=== PATIENT | female | born 1950 | race Caucasian/White ===

== ENCOUNTER 2016-07-06 13:50 | Emergency (ER) | payer OTHER ==
[~2016-07-06] VITALS: Ht 160 cm; Wt 52.2 kg
[2016-07-06] MEDS ORDERED: ATOR1TAB21 (14:14)
[2016-07-06] MEDS ORDERED: LEVO88TA3 (14:14)
[2016-07-06] MEDS ORDERED: CLON1TAB (14:14)
[2016-07-06] MEDS ORDERED: REXU1TAB3 (14:14)
[2016-07-06] MEDS ORDERED: MECL-68 (14:14)
[2016-07-06] MEDS ORDERED: BRIN1TAB3 (14:14)
[2016-07-06] MEDS ORDERED: LISINOPRIL-HCTZ (14:14)
[2016-07-06] MEDS ORDERED: LORazepam 1 MG TAB PO STA ×2 (14:26→15:47)
[2016-07-06] MEDS ORDERED: LORazepam 1 MG TAB As Ordered ONE (14:28)
[2016-07-06 15:10] LABS: BASO % 0.5 % (0.0-1.0); LARGE UNSTAINED CELL # 0.1 K/mm3 (0.0-0.4); LARGE UNSTAINED CELL % 1.8 % (0.0-4.0); LYMPH # 0.8 K/mm3 (1.5-4.5); LYMPH % 13.4 % (24.0-44.0); MEAN CORPUSCULAR HEMOGLOBIN 27.4 pg (27.0-33.0); MEAN CORPUSCULAR HGB CONC 34.7 g/dl (32.0-36.5); MEAN CORPUSCULAR VOLUME 78.8 fl (80.0-96.0); MONO # 0.4 K/mm3 (0.0-0.8); MONO % 8.5 % (0.0-5.0); NEUTROPHILS # 3.7 K/mm3 (1.8-7.7); NEUTROPHILS % 74.9 % (36.0-66.0); PLATELET COUNT, AUTOMATED 179 k/mm3 (150-450); RED CELL DISTRIBUTION WIDTH 14.2 % (11.5-14.5); WHITE BLOOD COUNT 4.9 K/mm3 (4.0-10.0)
[2016-07-06 15:39] LABS: ALBUMIN 3.5 GM/DL (3.2-5.2); ALBUMIN/GLOBULIN RATIO 1.25 (1.00-1.93); BILIRUBIN,DIRECT 0.2 MG/DL (0.0-0.2); BILIRUBIN,TOTAL 0.6 MG/DL (0.2-1.0); CALCIUM LEVEL 8.9 MG/DL (8.8-10.2); CREATININE FOR GFR 1.06 MG/DL (0.55-1.02); GLOMERULAR FILTRATION RATE 55.6 (>45); MAGNESIUM LEVEL 2.3 MG/DL (1.8-2.4); POTASSIUM SERUM 3.3 MEQ/L (3.5-5.1); THYROXINE (T4) 11.3 UG/DL (4.5-12.0); TOTAL PROTEIN 6.3 GM/DL (6.4-8.2)
[2016-07-06] MEDS ORDERED: ATIV1TAB7 PO (15:53)
[2016-07-06] MEDS ORDERED: HYDR-4274 PO (15:54)
[2016-07-06] MEDS ORDERED: POTASSIUM CHLORIDE 10 MEQ SR TABLET PO ONE (16:00)
[2016-07-06 16:19] LABS: ERYTHROCYTE SEDIMENTATION RATE 11 mm/hr (0-30)
--- NOTE | 2016-07-06 19:00 | REPUSA ---
MRI of the brain Clinical history: unsteady gait. Technique: Multiecho multiplanar MRI images of the brain were obtained without administration of cont rast. Diffusion weighted images with ADC mapping was also obtained. Findings: The ventricles and sulci are symmetric bilaterally. The brain parenchyma demonstrates uniform and nor mal signal on all sequences. There is no midline shift, mass effect, or extra-axial fluid collection. The midline intracranial structures do not demonstrate any gross abnormalities. The cervical cranial junction is intact. The orbits are unremarkable. The visualized paranasal sinuses and mastoid air ce lls are clear. The osseous structures and superficial soft tissues are unremarkable. The vascular str uctures demonstrate appropriate flow voids. Impression: Normal MRI of the Brain.
--- NOTE | 2016-07-06 19:20 | REPUSA ---
MRI cervical spine without contrast Clinical statement: unsteady gait. Technique: Multiecho multiplanar MRI images of the cervical spine were obtained without administratio n of contrast. No comparison is available. Findings: The cervical vertebral bodies are in satisfactory position and alignment. No fractures or d islocations are demonstrated. Normal heterogeneous bone marrow signal is noted. No osseous tumors are seen. The visualized portions of the posterior fossa are unremarkable. The cervical cranial junction is intact. The intervertebral disc spaces and heights are well-maintained. The facet joints are inta ct without evidence of subluxation. The cervical spinal cord demonstrates normal signal and contour. The surrounding soft tissues are within normal limits. At C4/C5, C5/C6, C6/C7, and C7/T1 disc levels, mild disc bulging is noted. There is no evidence of d isc herniation or central canal stenosis. Mild bilateral neural foraminal narrowing is noted at C4/C5 and C5/C6. Moderate bilateral neural foraminal narrowing is noted at C6/C7. Impression: 1. No acute abnormality. 2. Mild degenerative disc disease with disc bulgingand neural foraminal narrowing at C4/C5, C5/C6, C6 /C7, and C7/T1 as described. No evidence of central canal stenosis.
[2016-07-06] MEDS ORDERED: hydrOXYzine 50 MG TAB PO STA (19:51)
[2016-07-06] MEDS ORDERED: LORazepam 2 MG TAB PO STA (19:51)
[2016-07-06 20:00] VITALS: BP 139/82
--- NOTE | 2016-07-06 20:10 | REPUSA ---
MRI of the thoracic spine without contrast Clinical statement: unsteady gait. Technique: Multiecho multiplanar MRI images of the thoracic spine were obtained without administratio n of contrast. No comparison is available. Findings: The thoracic vertebral bodies are in satisfactory position and alignment. No fractures or d islocations are demonstrated. The bone marrow appears unremarkable. Intervertebral disc spaces are we ll maintained. There is minimal disc bulging at T3/T4, T4/T5, T6/T7, and T9/T10. There is no evidence of disc herniation or protrusion. The neural foramen are patent. The facet joints are intact. The aguilra rrounding soft tissues are within normal limits. Impression: No acute abnormality. Minimal disc bulging at multiple levels as described above.
[2016-07-08 09:03] LABS: FOLATE 17.1 NG/ML (>5.4)
[2016-07-11 00:07] LABS: Lyme Disease IgG/IgM Antibodie <0.91 ISR (0.00-0.90); Lyme Disease IgM Ab Quantitati <0.80 index (0.00-0.79)
== END 2016-07-06 20:04 | disposition home or self-care (01) ==
LOC: M ED 15:08
DX: F41.9 Anxiety disorder, unspecified (principal); M50.121 Cervical disc disorder at C4-C5 level with radiculopathy; M50.122 Cervical disc disorder at C5-C6 level with radiculopathy; M50.123 Cervical disc disorder at C6-C7 level with radiculopathy; M51.34 Other intervertebral disc degeneration, thoracic region; M51.24 Other intervertebral disc displacement, thoracic region; F32.9 Major depressive disorder, single episode, unspecified; E07.9 Disorder of thyroid, unspecified; F17.200 Nicotine dependence, unspecified, uncomplicated

== ENCOUNTER → 2016-09-30 | Outpatient (CLI) | payer OTHER ==
[~2016-09-30] MED LIST: ATIV1TAB7 PO; ATOR1TAB21; ATOR1TAB21 PO; BRIN1TAB3; CELE40TA PO; CLON1TAB; CLON1TAB PO; HYDR50TA70 PO; LEVO88TA24 PO; LEVO88TA3; LISI10TA2 PO; LISINOPRIL-HCTZ; LITH300C PO; MECL-68; MELA1TAB15 PO; REXU1TAB3
[2016-09-30 20:07] LABS: BLOOD UREA NITROGEN 10 MG/DL (7-18); CREATININE FOR GFR 0.95 MG/DL (0.55-1.02); GLOMERULAR FILTRATION RATE > 60.0 (>45)
== END ==
LOC: M SMT 11:58
PROVIDERS: ATTEND Psychiatry & Neurology Psychiatry
DX: Z79.899 Other long term (current) drug therapy (principal)

== ENCOUNTER → 2016-10-07 | Outpatient (CLI) | payer OTHER | LOC: M SMT 09:49 | PROVIDERS: ATTEND Psychiatry & Neurology Psychiatry | DX: Z79.899 Other long term (current) drug therapy (principal) ==

== ENCOUNTER 2016-10-21 11:04 | Inpatient (IN) | payer OTHER ==
[~2016-10-21] VITALS: Ht 160 cm; Wt 60.8 kg
[~2016-10-21 11:04] MED LIST changes: -ATOR1TAB21 PO; -CELE40TA PO; -CLON1TAB PO; -LEVO88TA24 PO; -LISI10TA2 PO; -LITH300C PO; -MELA1TAB15 PO
[2016-10-21] MEDS ORDERED: LITH300C PO (11:14)
[2016-10-21 12:13] LABS: ADD MANUAL DIFFER YES; DIFF SLIDE NUMBER 255; MEAN CORPUSCULAR HGB CONC 34.6 g/dl (32.0-36.5); MEAN CORPUSCULAR VOLUME 83.8 fl (80.0-96.0); PLATELET COUNT, AUTOMATED 201 k/mm3 (150-450); RED CELL DISTRIBUTION WIDTH 13.3 % (11.5-14.5); WHITE BLOOD COUNT 6.8 K/mm3 (4.0-10.0)
[2016-10-21] MEDS ORDERED: NS 500 ML IV ONE (12:45)
[2016-10-21 12:46] LABS: OSMOLALITY SERUM 289 MOSM/KG (280-301)
[2016-10-21 12:56] LABS: ALBUMIN 3.7 GM/DL (3.2-5.2); ALBUMIN/GLOBULIN RATIO 1.42 (1.00-1.93); ALKALINE PHOSPHATASE 85 U/L (45-117); ALT/SGPT 16 U/L (12-78); ANION GAP 8 MEQ/L (8-16); AST/SGOT 11 U/L (15-37); BILIRUBIN,DIRECT 0.1 MG/DL (0.0-0.2); BILIRUBIN,TOTAL 0.4 MG/DL (0.2-1.0); BLOOD UREA NITROGEN 12 MG/DL (7-18); CALCIUM LEVEL 9.2 MG/DL (8.8-10.2); CARBON DIOXIDE LEVEL 25 MEQ/L (21-32); CHLORIDE LEVEL 107 MEQ/L (98-107); CREATININE FOR GFR 0.94 MG/DL (0.55-1.02); GLOMERULAR FILTRATION RATE > 60.0 (>45); GLUCOSE, FASTING 98 MG/DL (80-110); POTASSIUM SERUM 3.7 MEQ/L (3.5-5.1); SODIUM LEVEL 140 MEQ/L (136-145); TOTAL PROTEIN 6.3 GM/DL (6.4-8.2)
[2016-10-21 12:59] LABS: BANDS 1 % (< 11); EOSINOPHILS 1 % (0-5)
[2016-10-21 13:00] LABS: ANISOCYTOSIS 1+
[2016-10-21] MEDS ORDERED: LEVO88TA24 PO (15:25)
[2016-10-21] MEDS ORDERED: ATOR1TAB21 PO (15:25)
[2016-10-21] MEDS ORDERED: CELE40TA PO (15:25)
[2016-10-21] MEDS ORDERED: CLON1TAB PO ×3 (15:25)
[2016-10-21] MEDS ORDERED: LISI10TA2 PO (15:25)
[2016-10-21] MEDS ORDERED: MELA1TAB15 PO (15:25)
[2016-10-21] MEDS: NS 1,000 ML IV SCH (16:36)
[2016-10-21 17:10] VITALS: BP 102/59
[2016-10-21 18:00] VITALS: BP_SYST 106; BP_SYST 107; BP_SYST 112; BP_DIAS 60; BP_DIAS 61; BP_DIAS 63
--- NOTE | 2016-10-21 18:07 | HPEPDOC ---
General Date of Admission Oct 21, 2016 at 14:41 Primary Care Physician: Cynthia Chaney Attending Physician: SOSA DORAN MD Chief Complaint The patient is a 65-year-old female admitted with a reason for visit of [place] Toxicity. Source: Patient, RN notes reviewed, Old records Exam Limitations: No limitations Associated Symptoms: Headaches, Loss of appetite History of Present Illness Ms. Breaux is a 65-year-old female who presents to [facility] Emergency Department with neurological symptoms of poor balance, slurred speech, gait disturbance, and tremor. Past medical history is significant for hypertension, hypothyroidism, dyslipidemia, depression, anxiety, panic disorder, agoraphobia, prior alcohol dependence, hematuria, adenomatous polyp, basal cell carcinoma. Patient reports that she has had the above mentioned symptoms for the last 2-3 weeks, but noticed on Friday she was unable to participate effectively at her tennis game. She was unable to either serve the tennis ball or otherwise hit the tennis ball over the net. She felt quite incoordinated which upset her. She call her psychiatrist this morning and described her symptoms after which her psychiatrist advised her to stop taking lithium and present to the emergency department. The patient describes her poor balance as having the sensation of about to fall over when getting dressed and lifting one leg or the other to put trousers on. Both her ex- and an acquaintance, within the last couple days, have inquired as to whether or not the patient has Parkinson's. She states that these are two people who she has not seen in over a year. Patient also feels as if her gait is off. She describes it as having to over-correct herself when walking. It others on either side. She reports that this happened previously when she was on Depakote which she started approximately 1 year ago, but recently stopped taking in February 2016. She also reports difficulty with her fine motor skills that she noticed today. She was having difficulty filling out the admission paperwork. She denies difficulty with word recognition or reading. States she had difficulty filling out paperwork secondary to a tremor. Admits to a left-sided frontal/temporal headache which started today. Has previously had scotomas, approximately two within the last year without the development of a headache. Denies triggers. Takes Advil and it improves the symptoms. Also reports dysphagia to liquids. Has never had this evaluated. Reports a decreased appetite with a decrease in weight of approximately 20 pounds. Has no desire to eat. Is active (plays tennis, golf, yoga) and on clonazepam which she attributes to the weight loss. Besides positive review of systems listed above, all other review of systems were negative. Hospitalist service was consulted and patient was admitted for further medical management. Home Medications Scheduled (Lisinopril/Hydrochlorothi 10-12.5 mg) 1 Tab Tab, 1 TAB PO DAILY, (Reported) Atorvastatin Calcium (Atorvastatin Calcium) 20 Mg Tab, 20 MG PO QHS, (Reported) Citalopram Hydrobromide (Celexa) 40 Mg Tab, 40 MG PO DAILY, (Reported) Clonazepam (Clonazepam) 1 Mg Tab, 0.5 MG PO DAILY, (Reported) TAKES IN THE AFTERNOON Clonazepam (Clonazepam) 1 Mg Tab, 1 MG PO QHS, (Reported) Levothyroxine Sodium (Levoxyl) 88 Mcg Tab, 88 MCG PO DAILY, (Reported) Melatonin (Melatonin) 10 Mg Tab, 10 MG PO QHS, (Reported) Scheduled PRN Clonazepam (Clonazepam) 1 Mg Tab, 1 MG PO TID PRN for ANXIETY, (Reported) Allergies Coded Allergies: No Known Allergies (Unverified , 07/06/16) Past Medical History Medical History 1. Hypertension 2. Hypothyroidism 3. Dyslipidemia 4. Depression 5. Anxiety 6. Panic disorder 7. Agoraphobia 8. Hematuria 9. Prior alcohol dependence 10. Basal cell carcinoma 11. Adenomatous polyp Surgical History 1. Colonoscopy 2. Total hysterectomy 3. Tonsillectomy 4. 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: One son and one daughter 4 grandchildren Prior alcohol dependence, sober 12 years, for 15 years confused a 750 mL bottle of wine every evening Currently smokes cigarillo's, 15 - 20 per day for the last 12 years Admits to domestic and international travel Denies environmental exposures Denies pets in the home Denies illicit drug use Review of Symptoms Constitutional: Reports: Weight Loss (20 pounds since April 2016), Denies: Chills, Fever, Malaise, Night Sweats, Weakness, Fatigue Eyes: Denies: Pain, Vision change, Conjunctivae inflammation, Eyelid inflammation ENT: Reports: Head Aches, Dysphagia (to liquids), Denies: Ear Pain, Sinus Congestion, Post Nasal Drip, Sore Throat, Epistaxis Skin: Denies: Rash, Lesions, Bruising Pulmonary: Denies: Dyspnea, Cough, Pleuritic Chest Pain Cardiovascular: Denies: Chest Pain, Palpitations, Orthopnea, Paroxysmal Noc. Dyspnea, Edema, Lt Headedness Gastrointestinal: Denies: Nausea, Vomiting, Abdominal Pain, Diarrhea, Constipation, Melena, Hematochezia Genitourinary: Denies: Dysuria, Frequency, Incontinence, Hematuria, Retention Hematologic: Denies: Bruising, Bleeding Excessively Endocrine: Denies: Polydipsia, Polyphagia, Polyuria Musculoskeletal: Denies: Neck Pain, Back Pain, Shoulder Pain, Joint Pain, Muscle Pain Neurological: Reports: Incoordination, Change in speech (slurred speech), Other Symptoms (gait disturbance, fine motor skill deficit, poor balance), Denies: Weakness, Numbness Physical Examination General Exam: Positive: Alert, Cooperative, No Acute Distress Eye Exam: Positive: PERRLA, Conjunctiva & lids normal, EOMI, Sclera icteric, Other Eye Symptoms ENT Exam: Positive: Atraumatic, Mucous membr. moist/pink, Pharynx Normal, Tongue Midline, Nares Patent, Negative: Pharyngeal Edema Neck Exam: Positive: Supple, +2 carotid pulse wo bruit, Negative: JVD, thyromegaly, Lymphadenopathy Chest Exam: Positive: Clear to auscultation, Normal air movement, Negative: Rales, Rhonchi, Wheezing Heart Exam: Positive: Rate Normal, Bradycardic, Regular Rhythm, Normal S1, Normal S2, Negative: Gallops, Murmurs, Rubs Telemetry: Positive: Sinus, Bradycardia Abdomen Exam: Positive: BS Hypoactive, Soft, Negative: Tenderness, Hepatospenomegaly, Mass, Hernia Extremity Exam: Positive: Normal pulses, Other (muscle strength intact in upper and lower extremities bilaterally), Negative: Clubbing, Cyanosis, Edema, Tenderness, Swelling Skin Exam: Negative: Rash, Lesion Neuro Exam: Positive: Normal Gait, Normal Speech, Strength at 5/5 X4 ext, Sensation Intact, Cranial Nerves 3-12 NL (mild decrease in cranial nerve VIII on the left), Reflexes 2+, Other (finger to nose and Romberg negative) Psych Exam: Positive: Oriented x 3 Vital Signs Vital Signs Date Time Temp Pulse Resp B/P (MAP) Pulse Ox O2 Delivery O2 Flow Rate FiO2 10/21/16 17:10 99.1 56 18 102/59 (73) 96 Room Air Height (in): 63 Weight (kg): 58.2 BMI (kg): 22.7 Laboratory Data Labs 24H Laboratory Tests 2 10/21/16 11:32: Neutrophils 76H, Band Neutrophils 1, Lymphocytes (Manual) 13L, Monocytes (Manual ) 6, Eosinophils (Manual) 1, Atypical Lymphocytes 3, Platelet Estimate NORMAL, Anisocytosis 1+ 10/21/16 11:56: Anion Gap 8, Glomerular Filtration Rate > 60.0, Osmolality 289, Lactic Acid Level 1.1, Calcium Level 9.2, Aspartate Amino Transf (AST/SGOT) 11L, Alanine Aminotransferase (ALT/SGPT) 16, Alkaline Phosphatase 85, Total Bilirubin 0.4, Direct Bilirubin 0.1, Ammonia 31, Total Creatine Kinase 42, Creatine Kinase MB 1.0, Creatine Kinase MB Relative Index 2.38, Troponin I < 0.02, Total Protein 6.3L, Albumin 3.7, Albumin/Globulin Ratio 1.42, Thyroid Stimulating Hormone (TSH ) 0.610, [place]o Level 1.45H CBC/BMP Laboratory Tests 10/21/16 11:32 Red Blood Count 4.77, Mean Corpuscular Volume 83.8, Mean Corpuscular Hemoglobin 29.0, Mean Corpuscular Hemoglobin Concent 34.6, Red Cell Distribution Width 13.3 10/21/16 11:56 Assessment/Plan This is a 65-year-old female with a past medical history is significant for hypertension, hypothyroidism, dyslipidemia, depression, anxiety , panic disorder, agoraphobia, prior alcohol dependence, hematuria, adenomatous polyp, basal cell carcinoma who presents with subjective neurological deficits with an unclear etiology at this time, bradycardia, and hypotension. Plan / VTE VTE Prophylaxis Ordered?: Yes (TEDs, sequential, knee-high compression, heparin 5000 units subcutaneous every 8 hours) Plan Plan Bradycardia No clear etiology at this time. EKG shows sinus bradycardia. Admit to the progressive care unit. Transient neurological symptoms Campo level is 1.45. Likely related to underlying lithium toxicity. Obtain daily lithium levels. Discontinue lithium at this time. Could consider other neurological deficits such as multiple sclerosis, cerebrovascular accident, normal pressure hydrocephalus. Consult neurology. Obtain MRI of the brain without contrast. Obtain neurological checks every 4 hours. Hypotension Admit patient to the progressive care unit. Obtain orthostatic vital signs. Initiate intravenous fluid resuscitation with normal saline at 50 mLs per hour. Hypothyroidism Tinea patient on current home medication regimen of Synthroid. Depression/anxiety Continue patient on her home medication regimen of clonazepam 1 mg 3 times a day as needed. Holding her regularly scheduled clonazepam of 0.5 mg in the morning and 1 mg in the evening. Could consider discussing patient with her outpatient psychiatrist. Hypertension Have held patient's lisinopril and hydrochlorothiazide at this time secondary to hypotension and IV fluid resuscitation. Could consider resuming these medications once patient's blood pressure and hydration status improve. Disposition Admit: Progressive care unit Anticipated hospitalization: 2 nights Attending: Dr. Mays IVF: Initiate (normal saline at 50 mLs per hour) Diet: Continue Current (2 g sodium) Activity: Encourage Ambulation Medications: Other Med: (discontinue lithium) Diagnostics: Check Labs, Repeat Labs in AM, MRI (of the brain without contrast) Anticipated Discharge: Home ANDREW PIERRE Oct 21, 2016 18:07
--- NOTE | 2016-10-21 19:34 | ECGEPIP ---
Stationary ECG Study [facility] - ED Test Date: 2016-10-21 Pat Name: NORAH INGRAM Department: Room: - Gender: F Food Preparation Worker: medina : 1950 Requested By: Keisha Land Order Number: [id number] Reading MD: Quinn Thrasher Measurements Intervals [place] Rate: 50 P: 54 MT: 181 QRS: 6 QRSD: 96 T: -15 QT: 454 QTc: 415 Interpretive Statements SINUS BRADYCARDIA NONSPECIFIC T-WAVE ABNORMALITY NO PRIORS Electronically Signed On 10-21-2016 19:34:26 EDT by Quinn Thrasher
--- NOTE | 2016-10-21 19:40 | REPUSA ---
MRI of the brain. Clinical history: lithium toxicity. Comparison: 07/06/2016. Technique: Multiecho multiplanar MRI images of the brain were obtained without administration of cont rast. Diffusion weighted images with ADC mapping was also obtained. Findings: The ventricles and sulci are symmetric bilaterally. The brain parenchyma demonstrates uniform and nor mal signal on all sequences. There is no midline shift, mass effect, or extra-axial fluid collection. The midline intracranial structures do not demonstrate any gross abnormalities. The cervical cranial junction is intact. The orbits are unremarkable. The visualized paranasal sinuses and mastoid air ce lls are clear. The osseous structures and superficial soft tissues are unremarkable. The vascular str uctures demonstrate appropriate flow voids. Impression: Normal MRI of the Brain.
[2016-10-21 20:07] VITALS: BP 106/62
[2016-10-21] MEDS: ATORVASTATIN 20 MG TAB PO SCH (21:11)
[2016-10-21] MEDS: HEPARIN SOD (PORCINE) 5000 UNITS/ML VIAL SC SCH (21:12)
[2016-10-21] MEDS: clonazePAM 1 MG TAB PO PRN (21:12)
[2016-10-21 23:04] VITALS: BP_SYST 102; BP_SYST 96; BP_SYST 98; BP_DIAS 56; BP_DIAS 58
[2016-10-22] VITALS: BP 102/58
[2016-10-22 04:00] VITALS: BP_SYST 91; BP_SYST 92; BP_SYST 98; BP_DIAS 54; BP_DIAS 56; BP_DIAS 64
[2016-10-22] MEDS: HEPARIN SOD (PORCINE) 5000 UNITS/ML VIAL SC SCH ×3 (05:07→21:29)
[2016-10-22] MEDS: LEVOTHYROXINE 88MCG TABLET (0.088 MG) PO SCH (05:07)
[2016-10-22 05:38] LABS: BASO % 0.4 % (0.0-1.0); EOS # 0.1 K/mm3 (0.0-0.50); EOS % 2.3 % (0.0-3.0); LARGE UNSTAINED CELL # 0.2 K/mm3 (0.0-0.4); LARGE UNSTAINED CELL % 3.1 % (0.0-4.0); LYMPH # 0.8 K/mm3 (1.5-4.5); LYMPH % 16.9 % (24.0-44.0); MEAN CORPUSCULAR HGB CONC 35.4 g/dl (32.0-36.5); MEAN CORPUSCULAR VOLUME 84.6 fl (80.0-96.0); MONO # 0.3 K/mm3 (0.0-0.8); NEUTROPHILS # 3.3 K/mm3 (1.8-7.7); NEUTROPHILS % 71.2 % (36.0-66.0); PLATELET COUNT, AUTOMATED 176 k/mm3 (150-450); RED CELL DISTRIBUTION WIDTH 13.4 % (11.5-14.5); WHITE BLOOD COUNT 4.7 K/mm3 (4.0-10.0)
[2016-10-22 05:53] LABS: ANION GAP 5 MEQ/L (8-16); BLOOD UREA NITROGEN 9 MG/DL (7-18); CALCIUM LEVEL 8.8 MG/DL (8.8-10.2); CARBON DIOXIDE LEVEL 30 MEQ/L (21-32); CHLORIDE LEVEL 112 MEQ/L (98-107); CREATININE FOR GFR 0.86 MG/DL (0.55-1.02); GLOMERULAR FILTRATION RATE > 60.0 (>45); GLUCOSE, FASTING 77 MG/DL (80-110); POTASSIUM SERUM 3.7 MEQ/L (3.5-5.1); SODIUM LEVEL 147 MEQ/L (136-145)
[2016-10-22 05:55] LABS: LITHIUM LEVEL 0.94 MEQ/L (0.60-1.20)
[2016-10-22 07:30] VITALS: BP 99/58
[2016-10-22] MEDS ORDERED: hydroCHLOROthiazide 12.5 MG CAPSULE PO SCH (09:00)
[2016-10-22] MEDS ORDERED: LISINOPRIL 10 MG TAB PO SCH (09:00)
[2016-10-22] MEDS: CitaloPRAM (CeleXA) 20 MG TAB PO SCH (09:35)
--- NOTE | 2016-10-22 11:43 | IPN ---
DATE: 10/22/2016 SUBJECTIVE: The patient tells me that she does not feel terribly unwell today. She does not notice any slurring of speech today. She does not notice any incoordination for which she was referred to the emergency room and otherwise is feeling well. She tells me it is too early to say if her symptoms have resolved. She denies lightheadedness, dizziness, chest pain, fevers, chills, nausea, vomiting or diarrhea. OBJECTIVE: VITAL SIGNS: T-max 99.7. Pulse 46, sinus. Respiratory rate 20. Blood pressure 99/58. She is not orthostatic. Oxygen saturation 97% on room air. GENERAL: She is a very pleasant female laying in bed. She does not appear to be in any acute distress whatsoever. HEENT: Cranial nerves II-XII are grossly intact. Face is symmetric. Tongue is midline. There is no appreciable slurring of the speech. CARDIOVASCULAR EXAM: S1, S2. Bradycardic. No distant heart sounds appreciated. RESPIRATORY EXAM: Clear. ABDOMINAL EXAM: Benign. EXTREMITIES: No clubbing, cyanosis or edema. I do not appreciate any tremor. There is no cogwheel rigidity. Reflexes appear to be 2+ and brisk throughout. NEUROLOGIC EXAM: Appears to be nonfocal. She is not ready for gait testing and did not wish to get out of bed at this time. LABORATORY STUDIES: WBC 4.7, hemoglobin 12.4, hematocrit 35 and platelet count 176. Chemistry panel: Sodium 147, potassium 3.7, chloride 112, bicarbonate 30, BUN 9, creatinine 0.8. Liver function tests, cardiac enzymes and TSH essentially unremarkable. She had an ammonia level of 31 - within normal limits. Becenti level was 1.45, elevated at the time of admission, and is 0.94 this morning. IMAGING: MRI of the brain was completed which was a normal MRI of the brain. ASSESSMENT AND PLAN: This is a 65-year-old female who presented with ataxic gait, slurred speech and tremor, referred to the emergency room by Dr. Yoon, her psychiatrist, with a likely lithium toxicity. PROBLEMS: 1. Becenti toxicity. She was told by two people within the last week that it looked as though she had Parkinson's and did present with a Parkinsonian type picture with ataxic gait and tremor and in addition she was having slurred speech. She was found to be bradycardic and hypotensive also in line with a lithium toxicity. We will continue her on IV fluids and continue to monitor. MRI has been negative. There is little suspicion for CVA. A neurology consultation has been placed. I look forward to their recommendation. I suspect that she will continue to improve and resolve over the next 24-48 hours. Will continue to monitor the patient on telemetry. 2. Hypothyroidism. She will continue with Synthroid. 3. Depression, anxiety and bipolar disorder. She is on clonazepam. We are holding her lithium. She is on Celexa. 4. Dyslipidemia. She is on Lipitor. 5. Hypertension. Her blood pressure is soft and she is mildly bradycardic. We are holding her lisinopril and hydrochlorothiazide and providing her with gentle IV fluids at this time. DISPOSITION: Await neurology recommendations and monitor for clinical improvement. Could likely be discharged within the next 24-48 hours.
[2016-10-22 12:00] VITALS: BP 114/68
[2016-10-22] MEDS: NS 1,000 ML IV SCH (13:36)
[2016-10-22 15:30] VITALS: BP 143/76
[2016-10-22 20:00] VITALS: BP 135/73; PULSE 46
[2016-10-22] MEDS: ATORVASTATIN 20 MG TAB PO SCH (21:28)
[2016-10-22] MEDS: clonazePAM 1 MG TAB PO PRN (21:29)
[2016-10-23] VITALS: BP 119/70
[2016-10-23 04:00] VITALS: BP 104/61
[2016-10-23 05:12] LABS: BASO % 0.2 % (0.0-1.0); EOS # 0.1 K/mm3 (0.0-0.50); LARGE UNSTAINED CELL # 0.1 K/mm3 (0.0-0.4); LARGE UNSTAINED CELL % 2.1 % (0.0-4.0); LYMPH # 0.9 K/mm3 (1.5-4.5); LYMPH % 23.8 % (24.0-44.0); MEAN CORPUSCULAR HGB CONC 36.2 g/dl (32.0-36.5); MEAN CORPUSCULAR VOLUME 82.9 fl (80.0-96.0); MONO # 0.3 K/mm3 (0.0-0.8); MONO % 6.7 % (0.0-5.0); NEUTROPHILS # 2.5 K/mm3 (1.8-7.7); NEUTROPHILS % 64.1 % (36.0-66.0); PLATELET COUNT, AUTOMATED 162 k/mm3 (150-450); RED CELL DISTRIBUTION WIDTH 13.2 % (11.5-14.5)
[2016-10-23] MEDS: LEVOTHYROXINE 88MCG TABLET (0.088 MG) PO SCH (05:38)
[2016-10-23] MEDS: HEPARIN SOD (PORCINE) 5000 UNITS/ML VIAL SC SCH ×2 (05:39→14:00)
[2016-10-23 05:41] LABS: ANION GAP 4 MEQ/L (8-16); BLOOD UREA NITROGEN 9 MG/DL (7-18); CALCIUM LEVEL 8.3 MG/DL (8.8-10.2); CARBON DIOXIDE LEVEL 29 MEQ/L (21-32); CHLORIDE LEVEL 116 MEQ/L (98-107); CREATININE FOR GFR 0.77 MG/DL (0.55-1.02); GLOMERULAR FILTRATION RATE > 60.0 (>45); GLUCOSE, FASTING 83 MG/DL (80-110); POTASSIUM SERUM 3.7 MEQ/L (3.5-5.1); SODIUM LEVEL 149 MEQ/L (136-145)
[2016-10-23 05:45] LABS: LITHIUM LEVEL 0.54 MEQ/L (0.60-1.20)
[2016-10-23 06:30] VITALS: BP_SYST 104; BP_SYST 114; BP_SYST 116; BP_DIAS 61; BP_DIAS 64; BP_DIAS 67
[2016-10-23 07:30] VITALS: BP 127/63
[2016-10-23] MEDS: CitaloPRAM (CeleXA) 20 MG TAB PO SCH (08:46)
--- NOTE | 2016-10-23 10:40 | ECGEPIP ---
Stationary ECG Study [facility] Test Date: 2016-10-23 Pat Name: NORAH INGRAM Department: Room: [place] [address] Gender: F Production Line Mechanic: LARRY : 1950 Requested By: BERRY Phelps Order Number: [id number] Reading MD: Berry Cedeño Measurements Intervals [place] Rate: 52 P: 64 MS: 193 QRS: 4 QRSD: 100 T: -16 QT: 431 QTc: 404 Interpretive Statements SINUS BRADYCARDIA NONSPECIFIC T-WAVE ABNORMALITY Similar to tracing done 10-21-16 Electronically Signed On 10-23-2016 10:40:23 EDT by Berry Cedeño
[2016-10-23 11:55] VITALS: BP 135/66
--- NOTE | 2016-10-23 14:03 | DSES ---
DATE OF ADMISSION: 10/21/2016 DATE OF DISCHARGE: 10/23/2016 SPECIALISTS INVOLVED IN CARE: Include Dr. Wolf. No complications during stay. No procedures performed during stay. DISCHARGE DIAGNOSIS: [place] toxicity. SECONDARY DIAGNOSES: 1. Hypothyroidism. 2. Depression. 3. Anxiety. 4. Bipolar disorder. 5. Dyslipidemia. 6. Hypertension. SUMMARY OF HOSPITALIZATION: This is a 65-year-old who presented when she was having difficulty playing tennis. She saw her psychiatrist, who thought that perhaps she was having side effects of lithium toxicity. She came to the emergency department for evaluation, was found to have an elevated lithium level, was admitted to the hospitalist service. Found to be bradycardic and hypotensive. Responded nicely to conservative measures. Was seen in consultation by Dr. Wolf. Case was discussed by phone with Dr. Yoon. Plan today would be to discharge her home if she clears physical therapy. On day of discharge, she is feeling well. She is not orthostatic. Temperature is 98, pulse 55, respiratory rate 20, blood pressure 127/63, 100% on room air. Her pulse did dip into the 40s while sleeping last night. No evidence of heart block on monitor. EKG this morning shows sinus bradycardia. She is awake, appropriately interactive, pleasantly conversant. Case was discussed by phone with the patient's daughter during the course of the exam. Heart is distant sounding, bradycardic. Breathing is symmetrical, rested. Some upper airway sounds are noted with no wheezes, rales, or rhonchi. Abdomen is soft, doughy, nontender. No lower extremity edema. Sodium is 149; patient has been on normal saline. BUN is 9, creatinine 0.77. White cell count 4, hemoglobin 12.1, platelets 162. DISCHARGE INSTRUCTIONS: Will include the followin. Followup with Dr. Chaney within 1 week, Dr. Yoon as scheduled. 2. Diet and activity as tolerated. Continue: - atorvastatin 20 mg by mouth daily - citalopram 40 mg by mouth daily - clonazepam 0.5 mg in the afternoon, 1 mg at bedtime, and then 1 mg three times a day as needed for anxiety - Synthroid 88 mcg by mouth daily - lisinopril/hydrochlorothiazide tablet 10/12.5 mg one tablet by mouth daily, which can be resumed 2 days from now - melatonin as needed for sleep Edited: k[place]ak 10/24/2016 [id number]
--- NOTE | 2016-10-24 09:29 | CR ---
DATE OF CONSULTATION: 10/22/2016 REFERRING PROVIDER: Dr. Mays. REASON FOR EVALUATION: Slurred speech and unsteady gait. The patient is a 65-year-old female with history of prior psychiatric disorders including panic disorder, agoraphobia, depression, anxiety, presenting to the hospital with having 3 weeks worth symptoms of unsteadiness on her feet and sometimes slurred speech that other people have noticed but not herself. The patient was noted on lab work at [facility] to have a slightly elevated lithium level. Marland was started recently within the past several weeks. This is a new medication for her. MRI of the brain was completed and was negative for any acute stroke. Marland was held at the request of her psychiatrist prior to her coming into the hospital. Her lithium level did improve during the hospital stay. The patient's symptoms of gait disturbance and slurred speech completely resolved. The patient had a similar episode a little over a year ago when she was started on Depakote as well. The patient at this present time states that she feels pretty much back to baseline. The patient has no other complaints. PAST MEDICAL HISTORY: Hypertension. Hypothyroidism. Dyslipidemia. Depression. Anxiety. Panic disorder. Agoraphobia. Prior alcohol dependence. Hematuria. Adenomatous polyp, basal cell carcinoma. MEDICATIONS: - lisinopril/hydrochlorothiazide 10/12.5 mg daily - atorvastatin 20 mg daily - citalopram 40 mg by mouth daily - clonazepam 0.5 mg by mouth daily, 1 mg by mouth daily at bedtime - levothyroxine 88 mcg by mouth daily - melatonin 10 mg by mouth daily at bedtime - Patient was on lithium which has been held. ALLERGIES: None. PAST SURGICAL HISTORY: Colonoscopy. Total hysterectomy. Tonsillectomy. CT guided biopsy of liver mass which was benign. FAMILY HISTORY: Noncontributory. SOCIAL HISTORY: The patient does smoke tobacco daily. Denies any alcohol use presently. The patient used to be an alcoholic. REVIEW OF SYSTEMS: 14-point review of systems obtained and is negative except as per HPI. PHYSICAL EXAMINATION: Blood pressure 143/76, pulse rate 59, respiratory rate is 20, temperature 98.7 degrees Fahrenheit, oxygenation 98% on room air. Current height is 5 feet 3 inches. Current weight is 58.2 kg. The patient is alert, oriented to person, place and time. Speech, language, comprehension, repetition are intact. Pupils are 3 mm round, reactive to light. Extraocular movements are intact in all directions without nystagmus. Sensation V1, V2, V3 is intact to light touch. No facial asymmetry to activation. Palate elevates symmetrically. Tongue is midline. No weakness of sternocleidomastoids bilaterally. Hearing is subjectively equal to finger rub. There is no pronator drift. There is no tremor noted on exam. [id number] does not reveal any ataxia, dysmetria. Strength testing demonstrates 5/5 strength in bilateral deltoids, biceps, triceps, handgrip, iliopsoas, quadriceps, anterior tibialis. Deep tendon reflexes are 2s throughout. Babinski signs are absent. Sensory is intact to light touch in all four extremities. Romberg testing is negative. ASSESSMENT: 65-year-old female with transient difficulty with gait, slurred speech, poor balance, tremor while on new medication lithium with a supratherapeutic level causing her symptoms. Since holding her medication, the patient's symptoms have resolved. Similar occurrence occurred with Depakote in the past. MRI did not reveal any evidence of stroke. The patient is to follow up with her psychiatrist as an outpatient to modify any future medications and have close follow-up to assess for any side effects.
== END 2016-10-23 15:13 | disposition home or self-care (01) | DRG 93 ==
LOC: M ED 11:04 → M ED INP 14:41 → M PCU 16:41
PROVIDERS: ADMIT Internal Medicine; ATTEND Internal Medicine
DX: R26.0 Ataxic gait (principal); R47.81 Slurred speech; R25.1 Tremor, unspecified; T43.595A Adverse effect of other antipsychotics and neuroleptics, initial encounter; I10 Essential (primary) hypertension; E03.9 Hypothyroidism, unspecified; R00.1 Bradycardia, unspecified; E78.5 Hyperlipidemia, unspecified; F32.9 Major depressive disorder, single episode, unspecified; I95.9 Hypotension, unspecified; F17.210 Nicotine dependence, cigarettes, uncomplicated; F40.01 Agoraphobia with panic disorder; F10.21 Alcohol dependence, in remission; Z85.828 Personal history of other malignant neoplasm of skin; Z79.899 Other long term (current) drug therapy; Z90.710 Acquired absence of both cervix and uterus

== ENCOUNTER 2017-05-30 08:08 | Day surgery (SDC) | payer MEDICARE, OTHER ==
[2017-05-30] MEDS: NS 1,000 ML IV (08:15)
[2017-05-30] MEDS ORDERED: LIDOCAINE 2% INJ 100 MG/5 ML SDV (FOR ANES.) As Ordered (09:12)
[2017-05-30] MEDS ORDERED: PROPOFOL 200 MG/20 ML VIAL As Ordered (09:12)
== END 2017-05-30 10:09 | disposition home or self-care (01) ==
LOC: M OPP 10:09
DX: Z12.11 Encounter for screening for malignant neoplasm of colon (principal); D12.0 Benign neoplasm of cecum; Z86.010 Personal history of colon polyps; I10 Essential (primary) hypertension; E78.00 Pure hypercholesterolemia, unspecified; E03.9 Hypothyroidism, unspecified; F41.9 Anxiety disorder, unspecified; F17.290 Nicotine dependence, other tobacco product, uncomplicated; Z79.899 Other long term (current) drug therapy; Z90.710 Acquired absence of both cervix and uterus; Z65.8 Other specified problems related to psychosocial circumstances
CPT/HCPCS: 45385

== ENCOUNTER → 2017-09-19 | Outpatient (REF) ==
[2017-09-19 18:33] LABS: RUBELLA IgG QUALITATIVE IMMUNE (IMMUNE)
== END ==
LOC: M LAB 15:38
DX: Z00.00 Encounter for general adult medical examination without abnormal findings (principal)

== ENCOUNTER 2017-09-24 14:23 | Emergency (ER) | payer MEDICARE, OTHER ==
[2017-09-24] MEDS: SUCRALFATE SUSP 1GM/10ML UD PO (14:58)
[2017-09-24] MEDS: ASPIRIN 81 MG CHEW TABLET PO (14:58)
[2017-09-24 14:59] LABS: BASO % 0.6 % (0.0-1.0); EOS # 0.1 10^3/uL (0.0-0.50); EOS % 1.5 % (0.0-3.0); HEMATOCRIT 33.1 % (36.0-47.0); HEMOGLOBIN 11.2 g/dl (12.0-15.5); IMMATURE GRANULOCYTE % 0.4 % (0-3.0); LYMPH % 20.7 % (24.0-44.0); MEAN CORPUSCULAR HEMOGLOBIN 27.1 pg (27.0-33.0); MEAN CORPUSCULAR HGB CONC 33.8 g/dl (32.0-36.5); MONO # 0.7 10^3/uL (0.0-0.8); MONO % 14.5 % (0.0-5.0); NEUTROPHILS # 2.9 10^3/uL (1.8-7.7); NEUTROPHILS % 62.3 % (36.0-66.0); PLATELET COUNT, AUTOMATED 218 10^3/uL (150-450); RED BLOOD COUNT 4.14 10^6/uL (4.00-5.40); RED CELL DISTRIBUTION WIDTH 13.6 % (11.5-14.5); WHITE BLOOD COUNT 4.7 10^3/uL (4.0-10.0)
[2017-09-24 15:14] LABS: INR 1.04; PROTHROMBIN TIME 13.7 SECONDS (12.1-14.4)
[2017-09-24 15:27] LABS: ALBUMIN 3.3 GM/DL (3.2-5.2); ALBUMIN/GLOBULIN RATIO 1.06 (1.00-1.93); ALKALINE PHOSPHATASE 96 U/L (45-117); ALT/SGPT 31 U/L (12-78); ANION GAP 6 MEQ/L (8-16); AST/SGOT 24 U/L (7-37); BILIRUBIN,DIRECT < 0.1 MG/DL (0.0-0.2); BILIRUBIN,TOTAL 0.5 MG/DL (0.2-1.0); BLOOD UREA NITROGEN 10 MG/DL (7-18); CALCIUM LEVEL 8.6 MG/DL (8.8-10.2); CARBON DIOXIDE LEVEL 25 MEQ/L (21-32); CHLORIDE LEVEL 113 MEQ/L (98-107); CK-MB VALUE MASS < 1.0 NG/ML (<3.6); CPK CREATINE PHOSPHOKINASE 94 U/L (26-192); CREATININE FOR GFR 0.96 MG/DL (0.55-1.30); GLOMERULAR FILTRATION RATE > 60.0 (>45); GLUCOSE, FASTING 86 MG/DL (70-100); LIPASE 149 U/L (73-393); MB/CK RELATIVE INDEX 1.06 (< OR =4); POTASSIUM SERUM 4.8 MEQ/L (3.5-5.1); SODIUM LEVEL 144 MEQ/L (136-145); TOTAL PROTEIN 6.4 GM/DL (6.4-8.2); TROPONIN I 0.02 NG/ML (< 0.10)
[2017-09-24 15:33] LABS: NT-PRO BNP 81 PG/ML (<125); THYROID STIMULATING HORMONE 0.472 uIU/ML (0.358-3.740)
[2017-09-24 15:44] LABS: D-DIMER QUANT 963.8 ng/ml (<500)
[2017-09-24] MEDS ORDERED: ISOVUE-370 76% 100ML VIAL (Q9967) As Ordered (16:42)
[2017-09-24 21:31] LABS: CPK CREATINE PHOSPHOKINASE 101 U/L (26-192); TROPONIN I 0.94 NG/ML (< 0.10)
[2017-09-24 21:32] LABS: CK-MB VALUE MASS 2.4 NG/ML (<3.6); MB/CK RELATIVE INDEX 2.37 (< OR =4)
[2017-09-24] MEDS: HEPARIN DRIP 25,000 UNITS in APPROPRIATE DILUENT 1 EA IV (22:50)
[2017-09-24 22:56] LABS: PARTIAL THROMBOPLASTIN TIME 25.2 SECONDS (25.4-37.6)
[2017-09-24] MEDS: clonazePAM 1 MG TAB PO (23:06)
[2017-09-24] MEDS: HEPARIN SOD (PORCINE) 5000 UNITS/ML VIAL IV (23:07)
== END 2017-09-24 23:21 | disposition short-term general hospital (02) ==
LOC: M ED 14:23
DX: I21.4 Non-ST elevation (NSTEMI) myocardial infarction (principal); R11.2 Nausea with vomiting, unspecified; I10 Essential (primary) hypertension; E78.5 Hyperlipidemia, unspecified; F17.290 Nicotine dependence, other tobacco product, uncomplicated; Z79.899 Other long term (current) drug therapy
CPT/HCPCS: Q9967

== ENCOUNTER → 2018-10-02 | Outpatient (REF) | payer MEDICARE, OTHER ==
[~2018-10-02] MED LIST changes: +ASPI81TA85 PO; +ATOR1TAB21 PO; +BUPR300T34; +CELE40TA PO; -CLON1TAB; +CLON1TAB8; +CLON1TAB8 PO; +LEVO88TA24 PO; +LISI10TA15 PO; +LISI10TA4; +LITH300C PO; +MELA1TAB15 PO; +OLAN2.5T25; +SUCR1SS PO
[2018-10-05 13:23] LABS: PERCENT SATURATION 7.9 % (13.2-45.0)
== END ==
LOC: M LAB REF 16:16
PROVIDERS: ATTEND Internal Medicine
DX: R53.83 Other fatigue (principal); R53.1 Weakness; D50.9 Iron deficiency anemia, unspecified

== ENCOUNTER → 2018-12-10 | Outpatient (CLI) | payer MEDICARE, OTHER ==
[2018-12-10 13:37] LABS: BASO # 0.1 10^3/uL (0.0-0.2); BASO % 1.1 % (0.0-1.0); EOS % 0.9 % (0.0-3.0); HEMATOCRIT 38.1 % (36.0-47.0); HEMOGLOBIN 11.7 g/dl (12.0-15.5); LYMPH # 0.8 10^3/uL (1.5-5.0); LYMPH % 17.7 % (24.0-44.0); MEAN CORPUSCULAR HGB CONC 30.7 g/dl (32.0-36.5); MEAN CORPUSCULAR VOLUME 78.1 fl (80.0-96.0); MONO # 0.5 10^3/uL (0.0-0.8); MONO % 11.7 % (0.0-5.0); NEUTROPHILS # 3.2 10^3/uL (1.5-8.5); NEUTROPHILS % 68.2 % (36.0-66.0); PLATELET COUNT, AUTOMATED 220 10^3/uL (150-450); RED BLOOD COUNT 4.88 10^6/uL (4.00-5.40); WHITE BLOOD COUNT 4.6 10^3/uL (4.0-10.0)
[2018-12-10 13:42] LABS: ALBUMIN 3.5 GM/DL (3.2-5.2); BILIRUBIN,TOTAL 0.4 MG/DL (0.2-1.0); CALCIUM LEVEL 8.9 MG/DL (8.8-10.2); CREATININE FOR GFR 1.03 MG/DL (0.55-1.30); GLOMERULAR FILTRATION RATE 56.9 (>45); IMMUNOGLOBULIN A 63.5 MG/DL (70-400); POTASSIUM SERUM 3.7 MEQ/L (3.5-5.1); TOTAL PROTEIN 6.5 GM/DL (6.4-8.2)
== END ==
LOC: M LAB 12:37
PROVIDERS: ATTEND Internal Medicine Gastroenterology
DX: D50.9 Iron deficiency anemia, unspecified (principal)

== ENCOUNTER 2019-01-29 13:19 | Day surgery (SDC) | payer MEDICARE, OTHER ==
[~2019-01-29] VITALS: Ht 160 cm; Wt 62.6 kg
[~2019-01-29 13:19] MED LIST changes: +CITA40TA4 PO; +FERR325T3 PO; +LAMO100T3 PO; +LIDOCAINE 2% INJ 100 MG/5 ML SDV (FOR ANES.) As Ordered ONE; -LISI10TA4; +LISI10TA4 PO; +NS 1,000 ML IV ONE; +PROPOFOL 200 MG/20 ML VIAL As Ordered ONE
--- NOTE | 2019-01-29 14:53 | ROOR ---
Patient Name: Arianna Breaux Procedure Date: 01/29/2019 2:37 PM Date of : 1950 Age: 68 Room: [facility] Gender: Female Note Status: Finalized Procedure: Upper GI endoscopy Indications: Iron deficiency anemia Providers: Berry GIBSON MD Referring MD: Cynthia WORRELL MD Requesting Provider: Medicines: Monitored Anesthesia Care Complications: No immediate complications. Procedure: Pre-Anesthesia Assessment: - The heart rate, respiratory rate, oxygen saturations, blood pressure, adequacy of pulmonary ventilation, and response to care were monitored throughout the procedure. The Endoscope was introduced through the mouth, and advanced to the second part of duodenum. The upper GI endoscopy was accomplished without difficulty. The patient tolerated the procedure well. Findings: The examined esophagus was normal. Scattered minimal inflammation characterized by erythema was found in the gastric body. Biopsies were taken with a cold forceps for Helicobacter pylori testing. No other significant abnormalities were identified in a careful examination of the stomach. The examined duodenum was normal. Biopsies for histology were taken with a cold forceps for evaluation of celiac disease. Impression: - Normal esophagus. - Minimal Gastritis. Biopsied. - Normal examined duodenum. Biopsied. Recommendation: - Telephone endoscopist for pathology results in 2 weeks. - To visualize the small bowel, perform video capsule endoscopy (date not yet determined). - My office will call you in the next few days to set you up for this study/exam. Berry Gibson MD Berry GIBSON MD 01/29/2019 2:53:30 PM Electronically signed by Berry GIBSON MD Number of Addenda: 0 Note Initiated On: 01/29/2019 2:37 PM Estimated Blood Loss: Estimated blood loss: none.
[2019-01-29 15:13] VITALS: BP 132/79
== END 2019-01-29 15:14 | disposition home or self-care (01) ==
LOC: M OPP 13:19
PROVIDERS: ATTEND Internal Medicine Gastroenterology
DX: K29.70 Gastritis, unspecified, without bleeding (principal); D50.9 Iron deficiency anemia, unspecified; F17.210 Nicotine dependence, cigarettes, uncomplicated; Z79.899 Other long term (current) drug therapy

== ENCOUNTER → 2019-10-01 | Outpatient (REF) | payer MEDICARE, OTHER ==
[~2019-10-01] MED LIST changes: -ASPI81TA85 PO; +ASPI81TA86 PO; -BUPR300T34; +BUPR300T92; -LIDOCAINE 2% INJ 100 MG/5 ML SDV (FOR ANES.) As Ordered ONE; -MECL-68; +MECL1TAB31; -NS 1,000 ML IV ONE; -PROPOFOL 200 MG/20 ML VIAL As Ordered ONE
== END ==
LOC: M LAB REF 11:37
PROVIDERS: ATTEND Physician Assistant Medical
DX: Z11.59 Encounter for screening for other viral diseases (principal)

== ENCOUNTER → 2020-01-17 | Outpatient (CLI) | payer SELFPAY | LOC: M LABSMTC 15:59 | PROVIDERS: ATTEND Pediatrics | DX: Z20.828 Contact with and (suspected) exposure to other viral communicable diseases (principal) ==

== ENCOUNTER → 2020-04-07 | Outpatient (CLI) | payer SELFPAY ==
[~2020-04-07] MED LIST changes: +LISI10TA22 PO; -LISI10TA4 PO
== END ==
LOC: M LABSMTC 11:04
PROVIDERS: ATTEND Pediatrics
DX: Z11.52 Encounter for screening for COVID-19 (principal)

== ENCOUNTER → 2020-07-26 | Outpatient (CLI) | payer MEDICARE, OTHER ==
--- NOTE | 2020-07-26 15:06 | DEXAMM ---
INDICATION: SCR FOR OSTEOPOROSIS. COMPARISON: 06/09/2018, 09/01/2007. TECHNIQUE: Bone density was measured using dual-energy x-ray absorptiometry (DEXA). FINDINGS: AP SPINE L1-L4 BMD 0.983 g/cm2 Young Adult T-Score -1.7 Age Matched Z-Score -0.1. LT FEMUR, TOTAL BMD 0.890 g/cm2 Young Adult T-Score -0.9 Age Matched Z-Score 0.4. LT NECK BMD 0.849 g/cm2 Young Adult T-Score -1.4 Age Matched Z-Score 0.3. RT FEMUR, TOTAL BMD 0.87 g/cm2 Young Adult T-Score -1.0 Age Matched Z-Score 0.4. RT NECK BMD 0.911 g/cm2 Young Adult T-Score -0.9 Age Matched Z-Score 0.7. IMPRESSION: There is low bone density of the spine. There is low bone density of the left hip. There is normal bone density of the right hip. The density of the spine has decreased 11.3% since the initial exam on 09/01/2007. The density of the spine decreased 8.5% since most recent exam on 06/09/2018. The density of the left hip has decreased 19.2% since initial exam on 09/01/2007. The density of the left hip has decreased 6.9% since most recent exam on 06/09/2018. The density of the right hip has decreased 17.1% since the initial exam on 09/01/2007. The density of the right hip has decreased 7.5% since the most recent exam on 06/09/2018. FOLLOW-UP: Recommendation for the next bone density exam: 2 years. <Electronically signed by Tank Camejo > 07/26/20 [id number]
== END ==
LOC: M WHC 10:59
PROVIDERS: ATTEND Internal Medicine
DX: Z13.820 Encounter for screening for osteoporosis (principal); M85.851 Other specified disorders of bone density and structure, right thigh; M85.852 Other specified disorders of bone density and structure, left thigh; M85.88 Other specified disorders of bone density and structure, other site; M81.0 Age-related osteoporosis without current pathological fracture

== ENCOUNTER → 2020-09-11 | Outpatient (CLI) | payer MEDICARE, OTHER ==
--- NOTE | 2020-09-11 14:33 | REPMRS ---
Patient History The patient states she had a clinical breast exam in May 2020. No known family history of cancer. No Hormone Replacement Therapy Patient states no breast complaints today. Patient has signed MRS History Sheet. Digital Woman Screen Mammo: September 11, 2020 - Exam #: [id number] Bilateral CC and MLO view(s) were taken. Technologist: Heaven Basilio, Technologist Prior study comparison: January 18, 2019, bilateral digital mammo screening bilat, performed at [facility]. December 23, 2017, bilateral digital mammo screening bilat, performed at [facility]. FINDINGS: There are scattered fibroglandular densities. Screening. Digital screening (2D) mammography was performed bilaterally in the CC and MLO projections. Additionally, breast tomosynthesis (3D mammography) was performed bilaterally in the CC and MLO projections. Todays exam was compared to the prior exam/exams. By history, the patient has no complaints of a palpable breast abnormality or other significant breast complaints. The breasts are unchanged in size and shape. There are no vicky-soft tissue densities or spiculated masses. There is no internal architectural distortion. Once again, stable benign appearing calcifications are seen.There are no suspicious vicky-calcific clusters. Skin thickening or nipple retraction is not present. IMPRESSION: BI-RADS Category 2- Benign Findings. There is no evidence of malignant alteration of the breasts. Followup examination recommended in one year. The Volpara volumetric breast density category is B, there are scattered areas of fibroglandular densities. This mammogram was read with the assistance of [employer],an FDA approved computer aided detection system for mammography. The lifetime Tyrer-Cuzick score is 4.9 % Negative x-ray reports should not delay surgical consultation if a dominant or clinically suspicious mass is present. Not all breast cancers can be identified by mammography. Therefore, we recommend that you continue to perform regular breast self-examination and physical examination and then promptly contact your physician of any concerns or changes. Adenosis and dense breasts may obscure an underlying neoplasm. Assessment: BI-RADS/ACR category 2 mammogram. Benign Findings. Recommendation Routine screening mammogram of both breasts in 1 year. Electronically Signed By: Nathan Deras DO 09/11/20 [id number]
== END ==
LOC: M WHC 10:02
PROVIDERS: ATTEND Internal Medicine
DX: Z12.31 Encounter for screening mammogram for malignant neoplasm of breast (principal)

== ENCOUNTER → 2020-10-20 | Outpatient (CLI) | payer MEDICARE, OTHER ==
--- NOTE | 2020-10-20 11:33 | REP ---
INDICATION: LOW BACK PAIN. COMPARISON: None. TECHNIQUE: Five views FINDINGS: Marginal osteophytes are seen bilaterally L3-4 to L5-S1. There is disc space narrowing at every level which is moderate and seen mostly at L5-S1. There is a grade 1 L4 upon L5 spondylolisthesis. There is no evidence spondylolysis. Degenerative facet joint changes seen bilaterally at every level particularly L4-5 L5-S1. There is anterior lipping at every level. Vertebral body height is within normal limits. The pedicles are intact bilaterally. IMPRESSION: Chronic changes as described above. <Electronically signed by Nathan Deras > 10/20/20 0022
== END ==
LOC: M PLALAB 10:53
PROVIDERS: ATTEND Internal Medicine
DX: M25.78 Osteophyte, vertebrae (principal); M51.36 Other intervertebral disc degeneration, lumbar region; M51.37 Other intervertebral disc degeneration, lumbosacral region

== ENCOUNTER → 2021-05-31 | Outpatient (REF) | payer MEDICARE, OTHER ==
[~2021-05-31] MED LIST changes: -CITA40TA4 PO; +CITA40TA7 PO; -LISI10TA15 PO; +LISI10TA24 PO
== END ==
LOC: M LAB REF 09:50
PROVIDERS: ATTEND Internal Medicine
DX: R19.7 Diarrhea, unspecified (principal); Z53.8 Procedure and treatment not carried out for other reasons

== ENCOUNTER → 2021-07-24 | Outpatient (REF) | payer MEDICARE, OTHER ==
[2021-07-27 13:07] LABS: PERCENT SATURATION 12.6 % (13.2-45.0)
== END ==
LOC: M LAB REF 11:54
PROVIDERS: ATTEND Internal Medicine
DX: D50.9 Iron deficiency anemia, unspecified (principal)

== ENCOUNTER → 2021-09-24 | Outpatient (CLI) | payer MEDICARE, OTHER | LOC: M WHC 13:42 | PROVIDERS: ATTEND Internal Medicine | DX: Z12.31 Encounter for screening mammogram for malignant neoplasm of breast (principal) ==

== ENCOUNTER → 2021-10-03 | Outpatient (REF) | payer MEDICARE, OTHER | LOC: M LAB REF 14:27 | PROVIDERS: ATTEND Internal Medicine Gastroenterology | DX: D50.9 Iron deficiency anemia, unspecified (principal) ==

== ENCOUNTER → 2021-10-08 | Outpatient (CLI) | payer MEDICARE, OTHER ==
[~2021-10-08] MED LIST changes: +FAMO20TA PO; +SERT-141 PO; +TRAZ-257 PO
== END ==
LOC: M LABSMTC 10:56
PROVIDERS: ATTEND Anesthesiology
DX: Z01.818 Encounter for other preprocedural examination (principal); Z11.52 Encounter for screening for COVID-19